=== PATIENT | female | born 1980 | race Caucasian/White ===

== ENCOUNTER 2017-12-05 14:38 | Outpatient (CLI) | payer OTHER ==
--- NOTE | 2017-12-05 15:15 | RAD ---
LEFT ANKLE 4 VIEWS: Date: 12/05/17 HISTORY: Pain. Symptoms x3 months. COMPARISON: None. FINDINGS: Joint spaces are preserved. No fracture. No cortical irregularity or periosteal reaction. IMPRESSION: Unremarkable left ankle 4 views. POS: [facility]
== END 2017-12-05 14:39 | disposition home or self-care (01) ==
LOC: SCSRAD 14:38
PROVIDERS: ATTEND Family Medicine
DX: M25.572 Pain in left ankle and joints of left foot (principal)

== ENCOUNTER 2018-12-10 10:37 | Outpatient (CLI) | payer BC ==
--- NOTE | 2018-12-10 11:15 | ULT ---
FUltrasound pelvis Ultrasound transvaginal Doppler duplex: HISTORY: History [id number] female with pelvic pain. TECHNIQUE: Transabdominal transducer and endovaginal transducer was used to evaluate intrapelvic contents using grayscale, color-flow, and spectral analysis. FINDINGS: Uterus: 9.5 x 5 x 5.5 cm Endometrial stripe: 1.8 cm (18 mm) Uterine leiomyoma: None Free fluid in the cul-de-sac: None Blood flow demonstrated in the ovaries: Yes Right ovary: 3 x 3 x 2.5 cm Left ovary: 3 x 2.5 x 3 cm 2 cm cyst in right ovary 2 cm cyst in left ovary IMPRESSION: 1. Bilateral ovarian cyst, with a 2 cm cyst in each ovary. 2. Endometrial stripe thickened to 18 mm. 3. Otherwise negative
== END 2018-12-10 10:38 | disposition home or self-care (01) ==
LOC: BICULT 10:37
PROVIDERS: ATTEND Family Medicine
DX: R10.2 Pelvic and perineal pain (principal)
CPT/HCPCS: 76856

== ENCOUNTER 2024-07-27 07:18 | Outpatient (CLI) | payer OTHER | END 2024-07-27 07:19 | disposition home or self-care (01) | LOC: ULT 07:18 | PROVIDERS: ATTEND Emergency Medicine | DX: E04.2 Nontoxic multinodular goiter (principal) | CPT/HCPCS: 76536 ==

== ENCOUNTER 2025-05-23 09:09 | Outpatient (CLI) | payer OTHER | END 2025-05-23 09:10 | disposition home or self-care (01) | LOC: SCSMRI 09:09 | PROVIDERS: ATTEND Family Medicine Sports Medicine | DX: S83.241A Other tear of medial meniscus, current injury, right knee, initial encounter (principal); S83.242A Other tear of medial meniscus, current injury, left knee, initial encounter; S83.282A Other tear of lateral meniscus, current injury, left knee, initial encounter; M25.861 Other specified joint disorders, right knee; M25.862 Other specified joint disorders, left knee ==